=== PATIENT | female | born 1960 | race Hispanic/Latino ===

== ENCOUNTER 2018-12-21 13:58 | Emergency (ER) | payer OTHER ==
[2018-12-21 14:33] VITALS: BP 179/85
--- NOTE | 2018-12-21 14:36 | Emergency Department Report ---
- General Chief complaint: Skin/Abscess/Foreign Body Stated complaint: STAPH INFECTION Time Seen by Provider: 12/21/18 14:30 Source: patient Mode of arrival: Ambulatory Limitations: No Limitations - History of Present Illness Initial comments: pt is a 58 yo female who states that she has a knot and erythema to the gluteal cleft that began three days ago. no drainage, no fever. states she had once before and abx took care of it did not have to have it drained. no pMHx. no allergies to meds. +smoker, non drinker, no drug use. - Related Data Previous Rx's Medication Instructions Recorded Last Taken Type Ibuprofen [Motrin 800 MG tab] 800 mg PO Q8HR PRN #14 tablet 12/21/18 Unknown Rx Sulfamethoxazole/Trimethoprim 1 each PO BID 10 Days #20 tablet 12/21/18 Unknown Rx [Bactrim DS TAB] Allergies Allergy/AdvReac Type Severity Reaction Status Date / Time No Known Allergies Allergy Unverified 12/21/18 14:00 Abscess Boil HPI - HPI Chief Complaint: Skin/Abscess/Foreign Body Stated Complaint: STAPH INFECTION Time Seen by Provider: 12/21/18 14:30 Home Medications: Previous Rx's Medication Instructions Recorded Last Taken Type Ibuprofen [Motrin 800 MG tab] 800 mg PO Q8HR PRN #14 tablet 12/21/18 Unknown Rx Sulfamethoxazole/Trimethoprim 1 each PO BID 10 Days #20 tablet 12/21/18 Unknown Rx [Bactrim DS TAB] Allergies/Adverse Reactions: Allergies Allergy/AdvReac Type Severity Reaction Status Date / Time No Known Allergies Allergy Unverified 12/21/18 14:00 ED Review of Systems ROS: Stated complaint: STAPH INFECTION Other details as noted in HPI Comment: All other systems reviewed and negative ED Past Medical Hx - Past Medical History Previous Medical History?: No - Surgical History Past Surgical History?: No - Medications Home Medications: Home Medications Medication Instructions Recorded Confirmed Last Taken Type Ibuprofen [Motrin 800 MG tab] 800 mg PO Q8HR PRN #14 tablet 12/21/18 Unknown Rx Sulfamethoxazole/Trimethoprim 1 each PO BID 10 Days #20 tablet 12/21/18 Unknown Rx [Bactrim DS TAB] ED Physical Exam - General Limitations: No Limitations General appearance: alert, in no apparent distress - Head Head exam: Present: atraumatic, normocephalic - Eye Eye exam: Present: normal appearance, PERRL - ENT ENT exam: Present: mucous membranes moist - Neurological Exam Neurological exam: Present: alert, oriented X3 - Psychiatric Psychiatric exam: Present: normal affect, normal mood - Skin Skin exam: Present: warm, dry, other (2 cm area of erythema and induration to the gluteal cleft, no fluctuance, no drainage, no skin denuding, no blistering, no eschar) ED Course Vital Signs 12/21/18 12/21/18 14:30 14:32 Temperature 98.2 F Pulse Rate 117 H 77 Respiratory 18 16 Rate Blood Pressure 179/85 O2 Sat by Pulse 98 99 Oximetry ED Medical Decision Making - Medical Decision Making pt is a 58 yo female who states that she has a knot and erythema to the gluteal cleft that began three days ago. no drainage, no fever. states she had once before and abx took care of it did not have to have it drained. no pMHx. no allergies to meds. +smoker, non drinker, no drug use. on exam: 2 cm area of erythema and induration to the gluteal cleft, no fluctuance, no drainage, no skin denuding, no blistering, no eschar. there is no drainable abscess at this time, appears to be cellulitis. pt given prescription for bactrim. advised to please take medication as prescribed. apply a warm wash cloth to the area a few times a day. follow up with a primary care doctor in the next 2-3 days for reevaluation. return to the emergency room for any new or worsening symptoms or if symptoms not improving despite antibiotic therapy. - Differential Diagnosis cellulitis, abscess, pilonidal cyst Critical care attestation.: If time is entered above; I have spent that time in minutes in the direct care of this critically ill patient, excluding procedure time. ED Disposition Clinical Impression: Cellulitis Qualifiers: Site of cellulitis: buttock Qualified Code(s): L03.317 - Cellulitis of buttock Disposition: TO HOME OR SELFCARE Is pt being admited?: No Does the pt Need Aspirin: No Condition: Stable Instructions: Cellulitis (ED) Additional Instructions: please take medication as prescribed. apply a warm wash cloth to the area a few times a day. follow up with a primary care doctor in the next 2-3 days for reevaluation. return to the emergency room for any new or worsening symptoms or if symptoms not improving despite antibiotic therapy. Prescriptions: Sulfamethoxazole/Trimethoprim [Bactrim DS TAB] 1 each PO BID 10 Days #20 tablet Ibuprofen [Motrin 800 MG tab] 800 mg PO Q8HR PRN #14 tablet PRN Reason: pain Referrals: [facility] [Outside] - 2-3 Days [facility] [Provider Group] - 2-3 Days [facility] [Outside] - 2-3 Days Time of Disposition: 14:35 Print Language: BANGLADESHI
== END 2018-12-21 15:23 | disposition home or self-care (01) ==
LOC: ED 13:58
DX: L03.317 Cellulitis of buttock (principal)
CPT/HCPCS: 99282

== ENCOUNTER 2019-04-03 11:08 | Emergency (ER) | payer OTHER ==
[2019-04-03 11:40] VITALS: BP 146/95
--- NOTE | 2019-04-03 11:40 | Emergency Department Report ---
Blank Doc - Documentation Documentation: 58-year-old female that presents with right lower abdominal abscess. This initial assessment/diagnostic orders/clinical plan/treatment(s) is/are subject to change based on patient's health status, clinical progression and re- assessment by fellow clinical providers in the ED. Further treatment and workup at subsequent clinical providers discretion. Patient/guardians urged not to elope from the ED as their condition may be serious if not clinically assessed and managed. Initial orders include: 1- Patient sent to [facility] for further evaluation and treatment 2- I/D
[2019-04-03] MEDS ORDERED: ROCEPHIN/NS 1 GM/50 ML 1 GM/50 ML BAG IV ONE (12:00)
[2019-04-03] MEDS ORDERED: TORADOL IV ONE (12:00)
[2019-04-03] MEDS ORDERED: NACL 0.9% 1000 ML 1,000 ML IV ONE (12:00)
--- NOTE | 2019-04-03 12:01 | Emergency Department Report ---
Abscess Boil HPI - HPI Chief Complaint: Skin/Abscess/Foreign Body Stated Complaint: POSS STAPH INFECTION Time Seen by Provider: 04/03/19 11:25 Duration: >1 Week Location: Other Severity: Moderate History: Yes Pain, Yes Purulent Drainage, Yes Previous History, No Fever, No Numbness, No Foreign Body, No Insect Bite HPI: 58 yo with a/c abd skin infection. no area to I/D. cellulitic in nature. pos pain. No fever or chills. pt states it did drain then stopped. She did not see pcp prior to ER. pt states it started as a hair bump Home Medications: Previous Rx's Medication Instructions Recorded Last Taken Type Ibuprofen [Motrin] 800 mg PO Q8HR PRN #30 tablet 04/03/19 Unknown Rx Silver Sulfadiazine [Ssd] 400 gm TP BID #1 each 04/03/19 Unknown Rx cephALEXin [Keflex] 500 mg PO Q12HR #20 cap 04/03/19 Unknown Rx Allergies/Adverse Reactions: Allergies Allergy/AdvReac Type Severity Reaction Status Date / Time No Known Allergies Allergy Unverified 12/21/18 14:00 ED Review of Systems ROS: Stated complaint: POSS STAPH INFECTION Other details as noted in HPI Comment: All other systems reviewed and negative ED Past Medical Hx - Past Medical History Previous Medical History?: No - Surgical History Past Surgical History?: Yes Additional Surgical History: c section - Family History Family history: no significant - Social History Smoking Status: Never Smoker Substance Use Type: None - Medications Home Medications: Home Medications Medication Instructions Recorded Confirmed Last Taken Type Ibuprofen [Motrin] 800 mg PO Q8HR PRN #30 tablet 04/03/19 Unknown Rx Silver Sulfadiazine [Ssd] 400 gm TP BID #1 each 04/03/19 Unknown Rx cephALEXin [Keflex] 500 mg PO Q12HR #20 cap 04/03/19 Unknown Rx ED Abscess Boil Physical Exam - Exam General: Vital signs noted. No distress. Alert and acting appropriately. Exam: Yes Tenderness, Yes Surrounding Cellulites/Erythema, Yes Normal Neurologic Exam, Yes Normal Circulation, No Fluctuance, No Lymphangitis, No Crepitation, No Heart Murmur Exam: 6x6 red area of rlq of abd. superficial in nature. demarkated area. no abscess. red. warm and painful. ED Course Vital Signs 04/03/19 11:38 Temperature 98.1 F Pulse Rate 75 Respiratory 18 Rate Blood Pressure 146/95 O2 Sat by Pulse 98 Oximetry Critical care attestation.: If time is entered above; I have spent that time in minutes in the direct care of this critically ill patient, excluding procedure time. ED Medical Decision Making - Lab Data Result diagrams: 04/03/19 12:10 04/03/19 12:10 - Medical Decision Making Lab Results 04/03/19 04/03/19 Range/Units 12:10 12:10 WBC 11.5 H (4.5-11.0) K/mm3 RBC 4.77 (3.65-5.03) M/mm3 Hgb 13.9 (10.1-14.3) gm/dl Hct 42.4 (30.3-42.9) % MCV 89 (79-97) fl MCH 29 (28-32) pg MCHC 33 (30-34) % RDW 14.6 (13.2-15.2) % Plt Count 193 (140-440) K/mm3 Lymph % (Auto) 16.3 (13.4-35.0) % [place] % (Auto) 8.3 H (0.0-7.3) % Eos % (Auto) 3.1 (0.0-4.3) % Baso % (Auto) 0.7 (0.0-1.8) % Lymph # 1.9 (1.2-5.4) K/mm3 [place] # 0.9 H (0.0-0.8) K/mm3 Eos # 0.4 (0.0-0.4) K/mm3 Baso # 0.1 (0.0-0.1) K/mm3 Seg Neutrophils % 71.6 H (40.0-70.0) % Seg Neutrophils # 8.2 H (1.8-7.7) K/mm3 Sodium 142 (137-145) mmol/L Potassium 4.2 (3.6-5.0) mmol/L Chloride 102.5 (98-107) mmol/L Carbon Dioxide 27 (22-30) mmol/L Anion Gap 17 mmol/L BUN 20 H (7-17) mg/dL Creatinine 0.6 L (0.7-1.2) mg/dL Estimated GFR > 60 ml/min BUN/Creatinine Ratio 33 % Glucose 107 H (65-100) mg/dL Calcium 9.0 (8.4-10.2) mg/dL Total Bilirubin 0.40 (0.1-1.2) mg/dL AST 15 (5-40) units/L ALT 13 (7-56) units/L Alkaline Phosphatase 66 (35-129) units/L Total Protein 7.2 (6.3-8.2) g/dL Albumin 4.2 (3.9-5) g/dL Albumin/Globulin Ratio 1.4 % Vital Signs 04/03/19 11:38 Temperature 98.1 F Pulse Rate 75 Respiratory 18 Rate Blood Pressure 146/95 O2 Sat by Pulse 98 Oximetry 1L NS/rocephin IV medicated for pain wound care dc home with dc plan of care and pcp follow up. - Differential Diagnosis cellulitis ED Disposition Clinical Impression: Cellulitis Disposition: DC-01 TO HOME OR SELFCARE Is pt being admited?: No Does the pt Need Aspirin: No Condition: Stable Instructions: Cellulitis (ED) Additional Instructions: soak in epsom salts for 20 minutes 4 times per day then apply cream and guaze dressing MEDS ORDERED HYDRATE WELL WITH WATER FOLLOW UP WITH PCP REFERRAL BELOW Prescriptions: cephALEXin [Keflex] 500 mg PO Q12HR #20 cap Ibuprofen [Motrin] 800 mg PO Q8HR PRN #30 tablet PRN Reason: Pain, Moderate (4-6) Silver Sulfadiazine [Ssd] 400 gm TP BID #1 each Referrals: [facility] [Outside] - 3-5 Days Time of Disposition: 12:39
[2019-04-03 12:31] LABS: Basophils # (Auto) 0.1 K/mm3 (0.0-0.1); Basophils % (Auto) 0.7 % (0.0-1.8); Eosinophils # (Auto) 0.4 K/mm3 (0.0-0.4); Eosinophils % (Auto) 3.1 % (0.0-4.3); Hematocrit 42.4 % (30.3-42.9); Hemoglobin 13.9 gm/dl (10.1-14.3); Lymphocytes # (Auto) 1.9 K/mm3 (1.2-5.4); Lymphocytes % (Auto) 16.3 % (13.4-35.0); Mean Corpuscular HGB Conc 33 % (30-34); Mean Corpuscular Volume 89 fl (79-97); Monocytes # (Auto) 0.9 K/mm3 (0.0-0.8); Monocytes % (Auto) 8.3 % (0.0-7.3); Platelet Count 193 K/mm3 (140-440); Red Blood Count 4.77 M/mm3 (3.65-5.03); Red Cell Distribution Width 14.6 % (13.2-15.2)
[2019-04-03 12:37] LABS: Alanine Aminotransferase 13 units/L (7-56); Albumin 4.2 g/dL (3.9-5); BUN/Creatinine Ratio 33; Blood Urea Nitrogen 20 mg/dL (7-17); Hemolysis Index 6
[2019-04-03] MEDS ORDERED: THERMAZENE 50 GRAM TP ONE (12:42)
== END 2019-04-03 13:12 | disposition home or self-care (01) ==
LOC: ED 11:08
DX: L03.311 Cellulitis of abdominal wall (principal); Z79.899 Other long term (current) drug therapy
CPT/HCPCS: 36415; 80053; 85025; 96374; 96375; 99283; J0696; J1885; J7030

== ENCOUNTER 2019-04-11 11:32 | Emergency (ER) | payer OTHER ==
--- NOTE | 2019-04-11 11:41 | Emergency Department Report ---
Blank Doc - Documentation Documentation: 58-year-old female that presents with worsening cellulitis to the abdomen. Was treated with antibiotics last week. This initial assessment/diagnostic orders/clinical plan/treatment(s) is/are subject to change based on patient's health status, clinical progression and re-assessment by fellow clinical providers in the ED. Further treatment and workup at subsequent clinical providers discretion. Patient/guardians urged not to elope from the ED as their condition may be serious if not clinically assessed and managed. Initial orders include: 1- Patient sent to [facility] for further evaluation and treatment
[2019-04-11 11:43] VITALS: BP 208/89
--- NOTE | 2019-04-11 12:21 | Emergency Department Report ---
ED General Adult HPI - General Chief complaint: Sore Throat Stated complaint: STAPH INFECTION WORSENING Time Seen by Provider: 04/11/19 11:40 Source: patient Mode of arrival: Ambulatory Limitations: No Limitations - History of Present Illness Initial comments: This is a 58-year-old female who presents to the emergency room with drainage and redness to the abdomen for one week. Patient states she was diagnosed with staph last week and started on Keflex with minimal improvement of symptoms. Patient reports new blisters formed to lower abdomen and her legs drainage. Patient states she is taking antibiotics as prescribed. She denies fever, cough, chills, numbness or tingling, or swelling. Onset/Timin -: week(s) Location: abdomen Severity scale (0 -10): 7 Quality: aching Consistency: constant Improves with: none Worsens with: none Treatments Prior to Arrival: NSAID - Related Data Previous Rx's Medication Instructions Recorded Last Taken Type Ibuprofen [Motrin] 800 mg PO Q8HR PRN #30 tablet 04/03/19 Unknown Rx Silver Sulfadiazine [Ssd] 400 gm TP BID #1 each 04/03/19 Unknown Rx cephALEXin [Keflex] 500 mg PO Q12HR #20 cap 04/03/19 Unknown Rx DOXYCYCLINE Hyclate [Vibramycin 100 mg PO Q12HR #14 capsule 04/11/19 Unknown Rx CAP] Allergies Allergy/AdvReac Type Severity Reaction Status Date / Time No Known Allergies Allergy Unverified 12/21/18 14:00 ED Review of Systems ROS: Stated complaint: STAPH INFECTION WORSENING Other details as noted in HPI Constitutional: denies: chills, fever Respiratory: denies: cough, shortness of breath, wheezing Cardiovascular: denies: chest pain, palpitations Gastrointestinal: denies: abdominal pain, nausea, diarrhea Skin: lesions (painful blisters, redness, and drainage to lower abdomen). denies: rash Neurological: denies: headache, weakness, paresthesias Psychiatric: denies: anxiety, depression ED Past Medical Hx - Surgical History Additional Surgical History: c section - Social History Smoking Status: Current Every Day Smoker - Medications Home Medications: Home Medications Medication Instructions Recorded Confirmed Last Taken Type Ibuprofen [Motrin] 800 mg PO Q8HR PRN #30 tablet 04/03/19 Unknown Rx Silver Sulfadiazine [Ssd] 400 gm TP BID #1 each 04/03/19 Unknown Rx cephALEXin [Keflex] 500 mg PO Q12HR #20 cap 04/03/19 Unknown Rx DOXYCYCLINE Hyclate [Vibramycin 100 mg PO Q12HR #14 capsule 04/11/19 Unknown Rx CAP] ED Physical Exam - General Limitations: No Limitations General appearance: alert, in no apparent distress - Respiratory Respiratory exam: Present: normal lung sounds bilaterally. Absent: respiratory distress - Cardiovascular Cardiovascular Exam: Present: regular rate, normal rhythm. Absent: systolic murmur, diastolic murmur, rubs, gallop - GI/Abdominal GI/Abdominal exam: Present: soft, normal bowel sounds. Absent: distended, tenderness, guarding, rebound, rigid - Neurological Exam Neurological exam: Present: alert, oriented X3 - Psychiatric Psychiatric exam: Present: normal affect, normal mood - Skin Skin exam: Present: warm, dry, normal color, erythema (Erythematous 5x4 demarcated area to RLQ, purulent drainage, tenderness to palpation). Absent: intact, rash, urticaria, vesicles, petechiae, pallor, abrasion, ecchymosis ED Course Vital Signs 04/11/19 11:40 Temperature 97.8 F Pulse Rate 61 Respiratory 18 Rate Blood Pressure 208/89 O2 Sat by Pulse 99 Oximetry ED Medical Decision Making - Lab Data Result diagrams: 04/11/19 12:27 Lab Results 04/11/19 Range/Units 12:27 WBC 10.0 (4.5-11.0) K/mm3 RBC 4.86 (3.65-5.03) M/mm3 Hgb 14.2 (10.1-14.3) gm/dl Hct 43.2 H (30.3-42.9) % MCV 89 (79-97) fl MCH 29 (28-32) pg MCHC 33 (30-34) % RDW 14.7 (13.2-15.2) % Plt Count 267 (140-440) K/mm3 Lymph % (Auto) 24.6 (13.4-35.0) % [place] % (Auto) 7.0 (0.0-7.3) % Eos % (Auto) 2.8 (0.0-4.3) % Baso % (Auto) 1.1 (0.0-1.8) % Lymph # 2.5 (1.2-5.4) K/mm3 [place] # 0.7 (0.0-0.8) K/mm3 Eos # 0.3 (0.0-0.4) K/mm3 Baso # 0.1 (0.0-0.1) K/mm3 Seg Neutrophils % 64.5 (40.0-70.0) % Seg Neutrophils # 6.4 (1.8-7.7) K/mm3 - Medical Decision Making Patient was examined by me. Patient is nontoxic appearing and stable. Vitals are normal. Obtained CBC which is within normal limits. Culture wound pending. Given analgesics while in the ER. There is a 5 x 4 erythematous demarcated area to right lower extremity which appeared to be cellulitis infection. Patient treated with Keflex last week for staph. We'll change antibiotics and refer to wound care. Patient informed of results and ER plan. Start tramadol and doxycycline. Follow up with PCP or return to the ER with worsening symptoms. Patient discharged home in stable condition. Critical care attestation.: If time is entered above; I have spent that time in minutes in the direct care of this critically ill patient, excluding procedure time. ED Disposition Clinical Impression: Cellulitis of right abdominal wall Disposition: DC- TO HOME OR SELFCARE Is pt being admited?: No Condition: Stable Instructions: Cellulitis (ED) Additional Instructions: Unpleased for course of antibiotics. I have referred she is to wound care for follow-up. Please follow-up with them within the next 2-3 days. Return to the emergency room if worsening symptoms. I have also provided a list of primary care doctors for follow-up. Prescriptions: DOXYCYCLINE Hyclate [Vibramycin CAP] 100 mg PO Q12HR #14 capsule Referrals: [facility] [Outside] - 3-5 Days [facility] [Outside] - 3-5 Days [facility] [Outside] - 3-5 Days Forms: Work/School Release Form(ED) Time of Disposition: 14:01
[2019-04-11 12:49] LABS: Basophils # (Auto) 0.1 K/mm3 (0.0-0.1); Basophils % (Auto) 1.1 % (0.0-1.8); Eosinophils # (Auto) 0.3 K/mm3 (0.0-0.4); Eosinophils % (Auto) 2.8 % (0.0-4.3); Hematocrit 43.2 % (30.3-42.9); Hemoglobin 14.2 gm/dl (10.1-14.3); Lymphocytes # (Auto) 2.5 K/mm3 (1.2-5.4); Lymphocytes % (Auto) 24.6 % (13.4-35.0); Mean Corpuscular HGB Conc 33 % (30-34); Mean Corpuscular Volume 89 fl (79-97); Monocytes # (Auto) 0.7 K/mm3 (0.0-0.8); Platelet Count 267 K/mm3 (140-440); Red Blood Count 4.86 M/mm3 (3.65-5.03); Red Cell Distribution Width 14.7 % (13.2-15.2)
[2019-04-11] MEDS ORDERED: HYDROcodone/ACETAMINOPHEN 5-325 MG TAB PO ONE (12:51)
== END 2019-04-11 14:10 | disposition home or self-care (01) ==
LOC: ED 11:32
DX: L03.311 Cellulitis of abdominal wall (principal); F17.200 Nicotine dependence, unspecified, uncomplicated; Z79.899 Other long term (current) drug therapy
CPT/HCPCS: 36415; 85025; 87076; 87116; 87186